=== PATIENT | female | born 1975 | race Native Hawaiian/Other Pacific Islander ===

== ENCOUNTER 2021-03-17 08:53 | Emergency (ER) | payer OTHER ==
[~2021-03-17] VITALS: Ht 162.6 cm; Wt 70.3 kg
[2021-03-17 09:04] VITALS: TEMP 99.6
[2021-03-17 09:54] VITALS: BP 124/80
== END 2021-03-17 09:56 | disposition home or self-care (01) ==
LOC: ED 08:53
PROC: 2W3CX1Z Immobilization of Right Lower Arm using Splint (ICD-10-PCS; principal; 2021-03-17)
DX: S60.211A Contusion of right wrist, initial encounter (principal); S66.811A Strain of other specified muscles, fascia and tendons at wrist and hand level, right hand, initial encounter; W01.0XXA Fall on same level from slipping, tripping and stumbling without subsequent striking against object, initial encounter; Y92.89 Other specified places as the place of occurrence of the external cause
CPT/HCPCS: 99283

== ENCOUNTER 2022-08-16 14:12 | Emergency (ER) | payer OTHER ==
[~2022-08-16] VITALS: Ht 162.6 cm; Wt 72.6 kg
[2022-08-16 14:19] VITALS: BP 127/81; TEMP 96.7
== END 2022-08-16 15:55 | disposition home or self-care (01) ==
LOC: ED 14:12
DX: S00.03XA Contusion of scalp, initial encounter (principal); V86.69XA Passenger of other special all-terrain or other off-road motor vehicle injured in nontraffic accident, initial encounter; Y92.89 Other specified places as the place of occurrence of the external cause
CPT/HCPCS: 99283